=== PATIENT | female | born 1950 | race Caucasian/White ===

== ENCOUNTER 2023-08-23 13:24 | Emergency (ER) | payer MEDICARE, OTHER, SELFPAY ==
[2023-08-23] VITALS (8 sets, daily range): BP systolic 99–184; BP diastolic 63–93; PULSE 61–70; RESP 14–34; TEMP 36.5; O2SAT 80–100
--- NOTE | 2023-08-23 14:36 | ECG_ITS ---
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 Measurements Intervals Spicer Rate: 63 P: 63 AZ: 197 QRS: 43 QRSD: 97 T: 54 QT: 446 QTc: 458 Interpretive Statements SINUS RHYTHM WITH OCCASIONAL VENTRICULAR PREMATURE COMPLEXES No previous ECG available for comparison Electronically Signed On 08-23-2023 16:04:23 CDT by Liliana Stanton M.D. [id number]
--- NOTE | 2023-08-23 14:37 | W.ED.NAVMDI ---
HPI - Nausea/Vomiting/Diarrhea General: Chief complaint: Nausea/Vomiting/Diarrhea Stated complaint: referral from urg, low bp Time Seen by Provider: 08/23/23 14:22 Source: patient Mode of arrival: ambulatory Limitations: no limitations History of Present Illness: This patient was referred to the emergency department from urgent care. The patient is here visiting her brother. She normally lives in [facility]. She accompanied him to a doctor's appointment on in [place]. She states that she has had some loose stools over the past 36 hours. She states that is been no blood in her stools. She used not had any vomiting. She has not had any associated abdominal pain. She denies any recent antibiotic use or known exposure to infectious disease. She has had no travel out of the country. She states that at times when she stands up too quickly she feels lightheaded and like things are closing in. She denies any palpitations chest pain or shortness of breath. She states that she does not normally drink as much water as she should. She has been taking her usual medications despite her symptoms. She has had a prior hysterectomy but no other abdominal surgeries but again has had no abdominal pain. MD elicited complaint: diarrhea Associated nausea: No Location of pain: None Associated symtoms: Denies change in vision, chest pain, dysuria, headache(s), nausea, palpitations or syncope Review of Systems Const: Denies: fever(s) or chills Eyes: Denies: change in vision ENMT: Denies: throat pain, odynophagia, nasal discharge or nasal congestion Card: Denies: chest pain, palpitations, irregular heart rhythm, syncope or pre-syncope GI: Reports: diarrhea; Denies: abdominal pain, nausea, vomiting, hematochezia or melena : Reports: oliguria; Denies: flank pain, difficulty voiding or dysuria Musc: Denies: neck pain, back pain, extremity pain or extremity swelling Skin/Breast: Denies: rash Neuro: Denies: headache(s), numbness in extremities or weakness in extremities Endo: Denies: polyuria or polydipsia Walker/Lymph: Denies: easy bruising PFSH ED PFSH: Social History Smoking and tobacco/nicotine status: unknown if used tobacco/nicotine Physical Exam Narrative: EXAM NARRATIVE: She is alert in no acute distress makes good eye contact. Speech is goal-directed. Const: COMMON NORMALS: no acute distress, average body habitus and patient oriented x3 GENERAL APPEARANCE: cooperative and comfortable HENMT: COMMON NORMALS: normocephalic, atraumatic, Normal nasal mucous membranes and turbinates present, moist oral mucous membranes and oropharynx normal HEAD & SCALP: normocephalic and atraumatic NOSE: Normal nasal mucous membranes and turbinates present Eye: COMMON NORMALS: Equal, round and reactive pupils present, EOMs intact bilaterally and conjunctivae normal CONJUNCTIVA: Yes conjunctivae normal PUPIL: Yes Equal, round and reactive pupils present Neck/C-Spine: COMMON NORMALS: full ROM, no lymphadenopathy and no JVD Chest: COMMONS NORMALS: normal inspection of the chest Resp: COMMON NORMALS: normal respiratory effort, No retractions, No use of accessory muscles and clear to auscultation bilaterally AUSCULTATION: clear to auscultation bilaterally Cardio: COMMON NORMALS: no JVD, regular rate, regular rhythm, No murmurs present (Cardio) and Peripheral pulses 2+ throughout RATE: regular rate RHYTHM: regular rhythm PERIPHERAL PULSES: Peripheral pulses 2+ throughout GI: COMMON NORMALS: Normal to inspection, nondistended, normoactive bowel sounds present, Soft to palpation, non-tender, No hepatosplenomegaly present and no masses PALPATION: Yes Soft to palpation and Yes No hepatosplenomegaly present : COMMON NORMALS: Yes no CVA tenderness BLADDER/KIDNEY EXAM: Yes no CVA tenderness Back/Pelvis: COMMON NORMALS: no CVA tenderness, thoracic and lumbar spine normal to inspection, no thoracic nor lumbar tenderness and thoraco-lumbar ROM normal Extremity: COMMON NORMALS: normal to inspection, full ROM, capillary refill normal, no calf tenderness and no pedal edema Neuro: COMMON NORMALS: patient oriented x3, moves all extremities, no focal motor deficits and no sensory deficits noted Psych: COMMON NORMALS: mental status grossly normal Skin: COMMON NORMALS: no rashes or lesions noted, no wounds, turgor normal and no jaundice GENERAL SKIN EXAM: no rashes or lesions noted and turgor normal Course Reevaluation(s): Reevaluation #1: Patient states she just subjectively feels much better and she is ready to be discharged. Review of her labs revealed that she has evidence of OTONIEL and I discussed this situation with her. 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 I told her that her creatinine numbers were elevated to 2.4 and she says is usually a little bit less than that. She has received IV fluids in the emergency department she is taking oral fluids liberally. She has reassuring vital signs as well. Again we reviewed the need for close follow-up, increase fluid intake and return precautions which she acknowledged. Brother was now present and he also is privy to our conversation. Time: 16:57 Vital Signs: Vital signs: Vital Signs Temperature 97.7 F 08/23/23 13:33 Pulse Rate 70 08/23/23 15:10 Respiratory Rate 14 08/23/23 15:10 Blood Pressure 131/74 08/23/23 15:10 Pulse Oximetry 97 08/23/23 14:35 Oxygen Delivery Me thod Room Air 08/23/23 13:33 MDM - Nausea/Vomiting/Diarrhea Medical Decision Making This patient presented with history as per the history of present illness. Workup was initiated to evaluate for possible volume dehydration, electrolyte disturbance, arrhythmia or other potential cause of her presentation. Laboratories returned and provided information to suggest volume depletion with elevated creatinine this is suggestive of possible acute kidney injury. When this information was related to the patient she related that she had history of chronic renal insufficiency and also sees a hydraulic rockbreaker operator. We discussed continued volume christian in the emergency department and/or observation. She voiced understanding of these recommendations however she felt markedly improved and is able to take fluids well and prefers to be discharged home. She agrees to follow-up with her hydraulic rockbreaker operator upon return home and also acknowledges return precautions. There is no evidence of arrhythmia or other electrolyte disturbances etc. while in the emergency department. Lab Data I reviewed the patient's lab results. 08/23/23 14:47 08/23/23 14:47 Laboratory Results WBC 6.81 10^3/uL (3.29-11.43) 08/23/23 14:47 RBC 4.37 10^6/uL (3.85-5.65) 08/23/23 14:47 Hgb 13.90 g/dL (11.27-16.99) 08/23/23 14:47 Hct 42.5 % (36-47) 08/23/23 14:47 MCV 97.3 fl (85-98) 08/23/23 14:47 MCH 31.8 pg (27-33) 08/23/23 14:47 MCHC 32.7 g/dL (30-55) 08/23/23 14:47 RDW 12.8 % (12.1-15.1) 08/23/23 14:47 Plt Count 162 10^3/cmm (157-399) 08/23/23 14:47 MPV 10.3 fL (7.4-10.4) 08/23/23 14:47 Neut % (Auto) 67.5 % 08/23/23 14:47 Lymph % (Auto) 25.4 % 08/23/23 14:47 Reagan % (Auto) 6.3 % 08/23/23 14:47 Eos % (Auto) 0.0 % 08/23/23 14:47 Baso % (Auto) 0.4 % 08/23/23 14:47 Neut # (Auto) 4.59 10^3/uL (1.8-7.7) 08/23/23 14:47 Lymph # (Auto) 1.7 10^3/uL (0.8-4.8) 08/23/23 14:47 Reagan # (Auto) 0.4 10^3/uL (0.2-0.9) 08/23/23 14:47 Eos # (Auto) 0.0 10^3/uL (0.0-0.8) 08/23/23 14:47 Baso # (Auto) 0.0 10^3/uL (0.0-0.1) 08/23/23 14:47 Nucleated RBC % (auto) 0 % 08/23/23 14:47 Nucleated RBCs # 0.0 /100WBC 08/23/23 14:47 Sodium 135 mmol/L (136-145) L 08/23/23 14:47 Potassium 4.6 mmol/L (3.5-5.1) 08/23/23 14:47 Chloride 98 mmol/L (98-107) 08/23/23 14:47 Carbon Dioxide 22 mmol/L (22-29) 08/23/23 14:47 Anion Gap 19.6 (5-19) H 08/23/23 14:47 BUN 24 mg/dL (8-23) H 08/23/23 14:47 Creatinine 2.6 mg/dL (0.5-0.9) H 08/23/23 14:47 GFR Calculation Not Reportable 08/23/23 14:47 Glucose 110 mg/dL (65-115) 08/23/23 14:47 Calculated Osmolality 285 mOsm/kg (285-295) 08/23/23 14:47 Calcium 8.7 mg/dL (8.5-10.5) 08/23/23 14:47 Total Bilirubin 0.3 mg/dL (0.15-1.2) 08/23/23 14:47 AST 22 U/L (0-32) 08/23/23 14:47 ALT 13 U/L (0-33) 08/23/23 14:47 Alkaline Phosphatase 93 U/L (35-105) 08/23/23 14:47 Total Protein 7.2 g/dL (6.6-8.7) 08/23/23 14:47 Albumin 4.2 g/dL (3.5-5.2) 08/23/23 14:47 Globulin 3.0 g/dL (1.3-4.6) 08/23/23 14:47 Lipase 31 U/L (13-60) 08/23/23 14:47 No radiology studies performed this visit EKG Data EKG 1: I personally reviewed and interpreted this EKG as follows: Interpretation: Contemporaneous review of resting EKG reveals ventricular rate of 63 bpm consistent with normal sinus rhythm. She has an occasional unifocal PVC. Normal [place] interval, QRS duration, corrected QT interval. Normal axis. No acute ST-T wave changes noted. Discharge Plan Discharge Patient Disposition: Home Clinical Impression: Volume depletion, Elevated serum creatinine Condition: Stable Prescriptions: No Action NOAH PO montelukast [Singulair] 10 mg tablet 10 mg PO DAILY citalopram [Celexa] 40 mg tablet 40 mg PO DAILY atorvastatin 40 mg tablet 40 mg PO DAILY Discharge Orders: Discharge ED (Routine); Ordered 08/23/23 Ordered By: Arun Saba Discharge Diet: Usual diet Discharge Activity: Resume usual activity Patient Instructions: Opioid Safety, Pain Management Activity Restrictions/Additional Instructions: As we discussed you has significant dehydration and volume depletion. You have had an elevation in your creatinine. We do not have a creatinine available here locally to compare to but according to your information this is slightly higher than your usual. We recommend that you increase your fluid intake to at least 2 quarts of fluid primarily water and sports drinks daily. If while you are still in this area you have concerning symptoms to you such as lightheadedness decreased urine output or any other concerns you are welcome to return to the emergency department otherwise you should follow-up with your kidney doctor within the next 1 to 2 weeks after you return back home. Coding Level of Care Code ED Electric Solderer for Jose L Sky
[2023-08-23 15:03] LABS: Basophils % 0.4 %; Hematocrit 42.5 % (36-47); Lymphocytes # 1.7 10^3/uL (0.8-4.8); Lymphocytes % 25.4 %; Mean Corpuscular HGB Conc 32.7 g/dL (30-55); Mean Corpuscular Hemoglobin 31.8 pg (27-33); Mean Corpuscular Volume 97.3 fl (85-98); Mean Platelet Volume 10.3 fL (7.4-10.4); Monocytes # 0.4 10^3/uL (0.2-0.9); Monocytes % 6.3 %; Neutrophils # 4.59 10^3/uL (1.8-7.7); Neutrophils % 67.5 %; Nucleated Red Blood Cells % 0 %; Platelet Count 162 10^3/cmm (157-399); Red Blood Count 4.37 10^6/uL (3.85-5.65); Red Cell Distribution Width 12.8 % (12.1-15.1); White Blood Count 6.81 10^3/uL (3.29-11.43)
[2023-08-23] MEDS: lactated ringers 1,000 ML 999 ML IV (15:05)
[2023-08-23 15:14] LABS: Alanine Aminotransferase 13 U/L (0-33); Albumin Level 4.2 g/dL (3.5-5.2); Alkaline Phosphatase 93 U/L (35-105); Anion Gap 19.6 (5-19); Aspartate Amino Transferase 22 U/L (0-32); Blood Urea Nitrogen 24 mg/dL (8-23); Calcium 8.7 mg/dL (8.5-10.5); Carbon Dioxide 22 mmol/L (22-29); Chloride 98 mmol/L (98-107); Glucose 110 mg/dL (65-115); Lipase 31 U/L (13-60); Osmolality Calculated 285 mOsm/kg (285-295); Potassium 4.6 mmol/L (3.5-5.1); Sodium 135 mmol/L (136-145); Total Bilirubin 0.3 mg/dL (0.15-1.2); Total Protein 7.2 g/dL (6.6-8.7)
[2023-08-23 15:18] LABS: Creatinine Clr Calc Pharmacy 20.7775
== END 2023-08-23 17:15 | disposition home or self-care (01) ==
PROVIDERS: Emergency Medicine; Emergency Provider Emergency Medicine
DX: R11.2 Nausea with vomiting, unspecified (principal); E86.9 Volume depletion, unspecified; R79.82 Elevated C-reactive protein (CRP); Z79.899 Other long term (current) drug therapy
CPT/HCPCS: 80053; 83690; 85025; 93005; 99284; J7120